=== PATIENT | female | born 2000 | race American Indian/Alaskan Native ===

== ENCOUNTER 2020-09-10 08:13 | Emergency (ER) | payer MEDICAID ==
[2020-09-10] MEDS ORDERED: ACETAMINOPHEN 325 MG TAB PO ONE (09:08)
[2020-09-10] MEDS ORDERED: FAMOTIDINE 20 MG TAB PO ONE (09:08)
[2020-09-10] MEDS ORDERED: ONDANSETRON 4 MG ODT TAB PO ONE ×2 (09:08→10:27)
--- NOTE | 2020-09-10 09:15 | Emergency Department Report ---
ED General Adult HPI - General Chief complaint: Sore Throat Stated complaint: BODY ACHE, SORE THROAT, HEADACHE Time Seen by Provider: 09/10/20 08:40 Source: patient Mode of arrival: Ambulatory Limitations: No Limitations - History of Present Illness Initial comments: 20-year-old female with no significant past medical history presents to the ER today with complaints of nausea, vomiting, sore throat, headache. Patient states that yesterday morning around 7 AM she started with multiple episodes of nausea/vomiting. She states that the emesis was initially food but then it became bilious. She denies any hematemesis. She then started with a sore thr oat, headache, generalized body aches, and epigastric pain. She reports mild intermittent dry cough but nothing significant. She denies any runny nose or nasal congestion. She denies any diarrhea. She denies any UTI symptoms. She denies any fever or chills. Her last menstrual cycle was towards the end of August 2020. She denies any known ill contacts. MD Complaint: Nausea, vomiting, sore throat, headache -: Sudden (7 am ) - Related Data Previous Rx's Medication Instructions Recorded Last Taken Type Clindamycin [Clindamycin CAP] 300 mg PO Q8H #30 cap 09/10/20 Unknown Rx Ibuprofen [Motrin] 800 mg PO Q8HR PRN #30 tablet 09/10/20 Unknown Rx Ondansetron [Zofran Odt] 4 - 8 mg PO Q8HR PRN #15 tab.rapdis 09/10/20 Unknown Rx Tramadol HCl/Acetaminophen 1 each PO Q4HR PRN #12 tablet 09/10/20 Unknown Rx [Ultracet Tablet] Allergies Allergy/AdvReac Type Severity Reaction Status Date / Time No Known Allergies Allergy Verified 09/10/20 08:37 ED Review of Systems ROS: Stated complaint: BODY ACHE, SORE THROAT, HEADACHE Other details as noted in HPI Comment: All other systems reviewed and negative Constitutional: denies: chills, fever ENT: throat pain. denies: dental pain, hearing loss, epistaxis, congestion Respiratory: cough (Dry/mild intermittent) Cardiovascular: denies: chest pain, palpitations Gastrointestinal: abdominal pain, nausea, vomiting. denies: diarrhea, constipation, hematemesis, melena, hematochezia Genitourinary: denies: urgency, dysuria, frequency, hematuria, discharge, abnormal menses, dyspareunia Musculoskeletal: myalgia. denies: back pain, joint swelling, arthralgia Skin: denies: rash, lesions, change in color, change in hair/nails, pruritus Neurological: headache. denies: weakness, paresthesias Psychiatric: denies: anxiety, depression, auditory hallucinations, visual hallucinations, homicidal thoughts, suicidal thoughts Hematological/Lymphatic: denies: easy bleeding, easy bruising ED Past Medical Hx - Social History Smoking Status: Never Smoker Substance Use Type: None - Medications Home Medications: Home Medications Medication Instructions Recorded Confirmed Last Taken Type Clindamycin [Clindamycin CAP] 300 mg PO Q8H #30 cap 09/10/20 Unknown Rx Ibuprofen [Motrin] 800 mg PO Q8HR PRN #30 tablet 09/10/20 Unknown Rx Ondansetron [Zofran Odt] 4 - 8 mg PO Q8HR PRN #15 tab.rapdis 09/10/20 Unknown Rx Tramadol HCl/Acetaminophen 1 each PO Q4HR PRN #12 tablet 09/10/20 Unknown Rx [Ultracet Tablet] ED Physical Exam - General Limitations: No Limitations General appearance: alert, in no apparent distress - Head Head exam: Present: atraumatic, normocephalic, normal inspection - Eye Eye exam: Present: normal appearance, PERRL, EOMI Pupils: Present: normal accommodation - ENT ENT exam: Present: mucous membranes moist, TM's normal bilaterally - Expanded ENT Exam Expanded Mouth exam: Present: normal external inspection Throat exam: Positive: tonsillar erythema, tonsillomegaly (Mild). Negative: tonsillar exudate, R peritonsillar mass, L peritonsillar mass - Neck Neck exam: Present: normal inspection, full ROM, lymphadenopathy (Anterior cervical). Absent: tenderness, meningismus - Respiratory Respiratory exam: Present: normal lung sounds bilaterally. Absent: respiratory distress, wheezes, rales, rhonchi - Cardiovascular Cardiovascular Exam: Present: regular rate, normal rhythm, normal heart sounds - GI/Abdominal GI/Abdominal exam: Present: soft, tenderness (Mild epigastric tenderness). Absent: distended, guarding, rebound, rigid - Back Exam Back exam: Present: normal inspection - Neurological Exam Neurological exam: Present: alert, oriented X3, CN II-XII intact, normal gait - Psychiatric Psychiatric exam: Present: normal affect, normal mood - Skin Skin exam: Present: intact ED Course Vital Signs 09/10/20 09/10/20 08:35 12:09 Temperature 98.6 F 98.3 F Pulse Rate 109 H 83 Respiratory 20 18 Rate Blood Pressure 117/63 Blood Pressure 131/68 [Right] O2 Sat by Pulse 100 100 Oximetry ED Medical Decision Making - Lab Data Result diagrams: 09/10/20 09:31 09/10/20 09:31 - Medical Decision Making Lab results reviewed -patient strep is positive, CBC shows an elevated white count of 16.4 which is likely secondary to strep, UA is concerning for possible UTI, urine culture is pending, and CMP unremarkable. Patient reports no more vomiting after the second round of Zofran. Overall patient is well-appearing, nontoxic and there is no significant signs of dehydration. There is no drooling on exam, she is tolerating secretions, and she has no trismus or muffled voice. She has no stridor on exam or signs of respiratory distress. The history, exam, diagnostic testing and current condition do not demonstrate an infectious process such as meningitis, severe pneumonia, retropharyngeal abscess, epiglottitis, sepsis or other serious bacterial infection requiring further testing, treatment, consultation or admission at this time. Her vital signs have been stable. Discussed lab results, diagnosis and treatment plan with patient. Patient stable at time of discharge. Critical care attestation.: If time is entered above; I have spent that time in minutes in the direct care of this critically ill patient, excluding procedure time. ED Disposition Clinical Impression: Strep pharyngitis, Nausea & vomiting, UTI (urinary tract infection) Disposition: -01 TO HOME OR SELFCARE Is pt being admited?: No Does the pt Need Aspirin: No Condition: Stable Instructions: Strep Throat, Adult, Urinary Tract Infection, Adult, Nausea and Vomiting, Adult Additional Instructions: Take the clindamycin, zofran, motrin, and ultram as prescribed. Drink lots of fluids. Follow up with PCP as in next 2-3 days. Return to ED if worse. Prescriptions: Clindamycin [Clindamycin CAP] 300 mg PO Q8H #30 cap Ibuprofen [Motrin] 800 mg PO Q8HR PRN #30 tablet PRN Reason: pain Tramadol HCl/Acetaminophen [Ultracet Tablet] 1 each PO Q4HR PRN #12 tablet PRN Reason: Pain Ondansetron [Zofran Odt] 4 - 8 mg PO Q8HR PRN #15 tab.rapdis PRN Reason: Vomiting Referrals: BRAYAN BIRD MD [Staff Physician] - 3-5 Days Forms: Work/School Release Form(ED) Time of Disposition: 12:05
[2020-09-10 09:56] LABS: Basophils % (Auto) 0.3 % (0.0-1.8); Eosinophils # (Auto) 0.1 K/mm3 (0.0-0.4); Eosinophils % (Auto) 0.7 % (0.0-4.3); Hematocrit 36.2 % (30.3-42.9); Hemoglobin 11.8 gm/dl (10.1-14.3); Lymphocytes # (Auto) 1.5 K/mm3 (1.2-5.4); Lymphocytes % (Auto) 9.4 % (13.4-35.0); Mean Corpuscular HGB Conc 33 % (30-34); Mean Corpuscular Volume 87 fl (79-97); Monocytes % (Auto) 5.9 % (0.0-7.3); Platelet Count 250 K/mm3 (140-440); Red Blood Count 4.19 M/mm3 (3.65-5.03); Red Cell Distribution Width 15.2 % (13.2-15.2)
[2020-09-10 11:05] LABS: Alanine Aminotransferase 7 units/L (7-56); Albumin 4.1 g/dL (3.9-5); Blood Urea Nitrogen 8 mg/dL (7-17); Calcium 9.1 mg/dL (8.4-10.2); Hemolysis Index 12
[2020-09-10 11:10] LABS: BUN/Creatinine Ratio 16
[2020-09-10 11:55] LABS: Bacteria,Urine 1+ /HPF (Negative); Bilirubin,Urine NEG (Negative); Blood,Urine NEG (Negative); Color,Urine Yellow (Yellow); Mucus,Urine 3+ /HPF
[2020-09-10 12:10] VITALS: BP 131/68
== END 2020-09-10 12:10 | disposition home or self-care (01) ==
LOC: ED 08:13
DX: N39.0 Urinary tract infection, site not specified (principal); J02.0 Streptococcal pharyngitis; B95.5 Unspecified streptococcus as the cause of diseases classified elsewhere; R11.2 Nausea with vomiting, unspecified; Z79.1 Long term (current) use of non-steroidal anti-inflammatories (NSAID); Z79.2 Long term (current) use of antibiotics; Z79.899 Other long term (current) drug therapy
CPT/HCPCS: 36415; 80053; 81001; 83690; 84703; 85025; 87086; 87430; Q0162